=== PATIENT | female | born 1965 | race Caucasian/White ===

== ENCOUNTER 2021-12-06 19:09 | Inpatient (IN) ==
[2021-12-07] MEDS ORDERED: Ondansetron ODT 4 MG TAB.RAPDIS SL PRN (00:29)
[2021-12-07] MEDS ORDERED: Naloxone 0.4 MG/ML INJ IVP PRN (00:29)
[2021-12-07] MEDS ORDERED: 0.9 % Sodium Chloride 1,000 ML IVC SCH (01:30)
[2021-12-07] MEDS ORDERED: D5% in Water 1,000 ML IVC PRN (02:42)
[2021-12-07] MEDS ORDERED: Dextrose Gel 15 GM/37.5 ML TUBE PO PRN ×2 (02:42)
[2021-12-07] MEDS ORDERED: *HR* Dextrose 50 % in Water (Syg) 50 ML SYRINGE IVP PRN (02:42)
[2021-12-07 02:55] LABS: Hemoglobin 9.1 g/dL (11.5-15.4); Immature Reticulocyte % 15.3 % (11.0-38.0); Mean Corpuscular HGB Conc 33.7 g/dL (31.6-35.5); Mean Corpuscular Hemoglobin 29.1 pg (28.0-33.3); Mean Corpuscular Volume 86.3 fL (83.0-100.0); Mean Platelet Volume 10.7 fL (9.4-12.4); Platelet Count 188 K/mcL (140-400); Red Blood Count 3.13 M/mcL (3.82-4.97); Red Cell Distribution Width 12.7 % (11.5-14.5); Retculocyte # 0.03 M/mcL (0.05-0.10); White Blood Count 4.5 K/mcL (4.3-11.1)
[2021-12-07] MEDS: 0.9 % Sodium Chloride 1,000 ML IVC SCH ×3 (03:16→20:37)
[2021-12-07 03:17] LABS: Acetaminophen < 10 mcg/mL (10-20); Alanine Aminotransferase 72 Units/L (7-52); Albumin 2.6 g/dL (3.5-5.7); Alkaline Phosphatase 345 Units/L (34-104); Aspartate Amino Transferase 70 Units/L (13-39); BUN/Creatinine Ratio 16 (6-26); Bilirubin,Total 5.6 mg/dL (0.3-1.0); Blood Urea Nitrogen 22 mg/dL (6-20); Calcium 7.6 mg/dL (8.6-10.3); Carbon Dioxide 25 mEq/L (23-29); Chloride 99 mEq/L (98-107); Ethanol < 10 mg/dL (Less than 10); Globulin 2.7 g/dL (2.4-3.5); Glucose 132 mg/dL (70-105); Lactate Dehydrogenase 219 Units/L (140-271); Magnesium 1.7 mg/dL (1.6-2.6); Osmolality,Calculated 275 (280-300); Phosphorous 2.5 mg/dL (2.7-4.5); Potassium 3.4 mEq/L (3.5-5.1); Sodium 130 mEq/L (136-145); Total Protein 5.3 g/dL (6.4-8.9)
[2021-12-07 03:34] LABS: Hepatitis B Surface Antigen Nonreactive (Nonreactive)
[2021-12-07 03:38] LABS: % Iron Saturation 34 % (15-50); Iron 77 mcg/dL (50-170); Transferrin 162 mg/dL (203-362)
[2021-12-07 03:56] LABS: Ferritin > 1500 ng/mL (10-120)
[2021-12-07 04:03] LABS: Hepatitis C Virus Antibody Nonreactive (Nonreactive)
[2021-12-07 04:05] LABS: HIV-1&2 Antibody & p24 Ag Nonreactive (Nonreactive); Hepatitis B Core IgM Nonreactive (Nonreactive)
[2021-12-07 04:06] LABS: Hepatitis A Antibody IgM Nonreactive (Nonreactive)
[2021-12-07 04:47] LABS: Estimated Average Glucose 275 mg/dl; Hemoglobin A1C 11.2 %
[2021-12-07] MEDS: Insulin LISPRO 300 UNITS/3 ML VIAL SUBQ SCH ×3 (05:45→17:59)
[2021-12-07] MEDS ORDERED: *HR* Enoxaparin 30 MG/0.3 ML SYRINGE SQ SCH (06:00)
[2021-12-07 07:54] LABS: Folate 19.1 ng/mL (3.0-16.0)
[2021-12-08] MEDS: Insulin LISPRO 300 UNITS/3 ML VIAL SUBQ SCH ×4 (00:31→18:49)
[2021-12-08 01:11] LABS: Protein/Creatinine Ratio,Urine 0.77 mg/mg (0.00-0.20); Sodium, Urine 52.5 mEq/L
[2021-12-08 01:26] LABS: Amphetamine Screen,Urine Negative ng/mL (Cutoff=1000); Barbiturate Screen,Urine Negative ng/mL (Cutoff=200); Benzodiazepines Screen,Urine Negative ng/mL (Cutoff=200); Cannabinoid Screen,Urine Positive ng/mL (Cutoff = 50); Cocaine Screen,Urine Negative ng/mL (Cutoff= 300); Opiate Screen,Urine Negative ng/mL (Cutoff=300); Phencyclidine Screen,Urine Negative ng/mL (Cutoff=25)
[2021-12-08 03:47] LABS: Albumin 2.3 g/dL (3.5-5.7); Albumin/Globulin Ratio 0.9 (1.1-2.2); Bilirubin,Indirect 1.9 mg/dL (0.0-1.0); Bilirubin,Total 3.9 mg/dL (0.3-1.0); Calcium 7.4 mg/dL (8.6-10.3); Globulin 2.5 g/dL (2.4-3.5); Potassium 3.6 mEq/L (3.5-5.1); Total Protein 4.8 g/dL (6.4-8.9)
[2021-12-08 03:58] LABS: Basophils % 0.9 %; Eosinophils % 0.6 %; Hematocrit 24.3 % (35.3-44.9); Hemoglobin 8.3 g/dL (11.5-15.4); Immature Granulocytes % 0.3 % (0-4); Lymphocytes % 28.4 %; Mean Corpuscular HGB Conc 34.2 g/dL (31.6-35.5); Mean Corpuscular Hemoglobin 30.2 pg (28.0-33.3); Mean Corpuscular Volume 88.4 fL (83.0-100.0); Mean Platelet Volume 10.6 fL (9.4-12.4); Monocytes # 0.6 K/mcL (0.0-1.3); Monocytes % 17.5 %; Neutrophils # 1.8 K/mcL (1.6-8.9); Platelet Count 190 K/mcL (140-400); Red Blood Count 2.75 M/mcL (3.82-4.97); Segmented Neutrophils % 52.3 %; White Blood Count 3.4 K/mcL (4.3-11.1)
[2021-12-08] MEDS: 0.9 % Sodium Chloride 1,000 ML IVC SCH ×3 (05:15→23:34)
[2021-12-08] MEDS: *HR* Enoxaparin 40 MG/0.4 ML SYRINGE SQ SCH (05:17)
[2021-12-08] MEDS ORDERED: *HR* Rocuronium Bromide 50 MG/5 ML VIAL ONE ×2 (07:29→14:52)
[2021-12-08] MEDS ORDERED: Ondansetron 4 MG/2 ML VIAL ONE ×2 (07:29→14:52)
[2021-12-08] MEDS ORDERED: Lidocaine -MPF 2% 5 ML VIAL ONE ×2 (07:29→14:52)
[2021-12-08] MEDS ORDERED: *HR* Succinylcholine 200 MG/10 ML VIAL IVP ONE (07:29)
[2021-12-08] MEDS ORDERED: *HR* Propofol 200 MG/20 ML VIAL IVP ONE ×2 (07:29→14:48)
[2021-12-08] MEDS ORDERED: *HR* FentaNYL (PF) 100 MCG/2 ML VIAL ONE ×2 (07:29→14:49)
[2021-12-08] MEDS: Metoprolol XL (24 HR) Succ 25 MG TAB.ER.24H PO SCH (10:27)
[2021-12-08] MEDS: predniSONE 20 MG TABLET PO SCH (10:27)
[2021-12-08] MEDS ORDERED: *HR* Labetalol 20 MG/4 ML SYRINGE IVP PRN (14:09)
[2021-12-08] MEDS ORDERED: Acetaminophen IV 1,000 MG/100 ML BAG IVPB ONE (14:09)
[2021-12-08] MEDS ORDERED: Famotidine 20 MG/2 ML VIAL IVP ONE (14:09)
[2021-12-08] MEDS ORDERED: *HR* OxyCODONE Immed Rel 5 MG TABLET PO PRN (14:09)
[2021-12-08] MEDS ORDERED: Ondansetron 4 MG/2 ML VIAL IVP PRN (14:09)
[2021-12-08] MEDS ORDERED: *HR* Midazolam HCl 2 MG/2 ML VIAL ONE (14:49)
[2021-12-08] MEDS ORDERED: Lidocaine HCL 4 ML Topical Solution (Laryng-O-Jet Kit Sterile Pak) TP ONE (14:52)
[2021-12-08] MEDS ORDERED: Sugammadex Sodium 200 MG/2 ML VIAL IV ONE (16:55)
[2021-12-08] MEDS ORDERED: Indomethacin 50 MG SUPP.RECT RC ONE (17:01)
[2021-12-08] MEDS ORDERED: *HR* Heparin 5,000 UNIT/ML VIAL ONE (17:14)
[2021-12-08] MEDS ORDERED: Promethazine 6.25 MG in Water for inj. (sterile) 20 ML IVPB ONE (18:24)
[2021-12-09] MEDS: Insulin LISPRO 300 UNITS/3 ML VIAL SUBQ SCH ×4 (01:08→17:59)
[2021-12-09 01:59] LABS: Basophils % 0.5 %; Hematocrit 26.5 % (35.3-44.9); Hemoglobin 8.6 g/dL (11.5-15.4); Immature Granulocytes % 0.3 % (0-4); Lymphocytes # 0.9 K/mcL (0.6-4.6); Lymphocytes % 22.9 %; Mean Corpuscular HGB Conc 32.5 g/dL (31.6-35.5); Mean Corpuscular Hemoglobin 29.5 pg (28.0-33.3); Mean Corpuscular Volume 90.8 fL (83.0-100.0); Mean Platelet Volume 10.1 fL (9.4-12.4); Monocytes # 0.5 K/mcL (0.0-1.3); Monocytes % 11.8 %; Neutrophils # 2.5 K/mcL (1.6-8.9); Platelet Count 202 K/mcL (140-400); Red Blood Count 2.92 M/mcL (3.82-4.97); Red Cell Distribution Width 13.2 % (11.5-14.5); Segmented Neutrophils % 64.5 %; White Blood Count 3.9 K/mcL (4.3-11.1)
[2021-12-09 02:16] LABS: Albumin 2.4 g/dL (3.5-5.7); Albumin/Globulin Ratio 0.9 (1.1-2.2); Bilirubin,Indirect 1.8 mg/dL (0.0-1.0); Bilirubin,Total 3.8 mg/dL (0.3-1.0); Calcium 7.1 mg/dL (8.6-10.3); Globulin 2.7 g/dL (2.4-3.5); Potassium 4.2 mEq/L (3.5-5.1); Total Protein 5.1 g/dL (6.4-8.9)
[2021-12-09] MEDS: *HR* Enoxaparin 40 MG/0.4 ML SYRINGE SQ SCH (05:51)
[2021-12-09] MEDS: 0.9 % Sodium Chloride 1,000 ML IVC SCH ×3 (05:53→16:52)
[2021-12-09] MEDS: Metoprolol XL (24 HR) Succ 25 MG TAB.ER.24H PO SCH (08:14)
[2021-12-09] MEDS: predniSONE 20 MG TABLET PO SCH (08:15)
[2021-12-10] MEDS: Insulin LISPRO 300 UNITS/3 ML VIAL SUBQ SCH ×5 (00:18→22:26)
[2021-12-10] MEDS: 0.9 % Sodium Chloride 1,000 ML IVC SCH ×2 (03:49→15:00)
[2021-12-10] MEDS: *HR* Enoxaparin 40 MG/0.4 ML SYRINGE SQ SCH (06:24)
[2021-12-10] MEDS: predniSONE 20 MG TABLET PO SCH (08:31)
[2021-12-10] MEDS: Metoprolol XL (24 HR) Succ 25 MG TAB.ER.24H PO SCH (08:32)
[2021-12-10 11:40] LABS: ANA IgG by ELISA NONE DETECTED (None Detected); Cancer Antigen-GI (CA 19-9) 3 U/mL (<=35)
[2021-12-10 11:43] LABS: AFP Tumor Marker Non-Pregnant 3 ng/mL (0-9)
[2021-12-10 17:49] LABS: ANCA IFA Titer <1:20 (<1:20)
[2021-12-11 05:58] LABS: Albumin 2.6 g/dL (3.5-5.7); Bilirubin,Total 2.9 mg/dL (0.3-1.0); Calcium 7.4 mg/dL (8.6-10.3); Globulin 2.7 g/dL (2.4-3.5); Potassium 3.7 mEq/L (3.5-5.1); Total Protein 5.3 g/dL (6.4-8.9)
[2021-12-11] MEDS: *HR* Enoxaparin 40 MG/0.4 ML SYRINGE SQ SCH (06:43)
[2021-12-11 07:55] LABS: ANCA IFA Pattern NONE DETECTED (None Detected); Serine Protease-3 Antibody 7 AU/mL (0-19)
[2021-12-11 08:01] LABS: F-Actin (sm muscle) Ab IgG 10 Units (0-19)
[2021-12-11] MEDS: Metoprolol XL (24 HR) Succ 25 MG TAB.ER.24H PO SCH (08:26)
[2021-12-11] MEDS: Insulin LISPRO 300 UNITS/3 ML VIAL SUBQ SCH ×2 (08:26→13:29)
[2021-12-11] MEDS: predniSONE 20 MG TABLET PO SCH (08:26)
[2021-12-11] MEDS ORDERED: Insulin DETEMIR 100 UNIT/ML X5UNITS SUBQ SCH (09:00)
[2021-12-11] MEDS ORDERED: Iopamidol - 370 500 ML MLS IVP ONE (09:14)
[2021-12-11] MEDS ORDERED: Metoprolol XL (24 HR) Succ 25 MG TAB.ER.24H PO ONE (14:45)
[2021-12-11 16:27] VITALS: BP 171/88; PULSE 103; TEMP 98.5; O2SAT 98
[2021-12-12] MEDS ORDERED: Metoprolol XL (24 HR) Succ 50 MG TAB.ER.24H PO SCH (09:00)
== END 2021-12-11 19:16 | disposition home or self-care (01) | DRG 421 ==
LOC: 3ANU → SUATTDRO 12-07
PROVIDERS: ADMIT Internal Medicine; ATTEND Hospitalist
PROC: ENDOEUS (2021-12-08 07:45)